=== PATIENT | male | born 1965 | race Caucasian/White ===

== ENCOUNTER 2022-05-24 11:06 | Emergency (ER) | payer MEDICAID ==
[~2022-05-24] VITALS: Ht 170.2 cm; Wt 74.8 kg
[2022-05-24 11:18] VITALS: BP 151/99
[2022-05-24] MEDS ORDERED: AMLO-213 PO (11:20)
[2022-05-24] MEDS ORDERED: LISI30TA4 PO (11:20)
== END 2022-05-24 11:22 | disposition home or self-care (01) ==
LOC: ER 11:15
DX: I10 Essential (primary) hypertension (principal); Z76.0 Encounter for issue of repeat prescription; Z79.899 Other long term (current) drug therapy

== ENCOUNTER 2022-12-09 11:39 | Emergency (ER) | payer MEDICAID ==
[~2022-12-09] VITALS: Ht 185.4 cm; Wt 102.1 kg
[~2022-12-09 11:39] MED LIST: AMLO-213 PO; LISI30TA4 PO
[2022-12-09 12:18] VITALS: TEMP 98.5
[2022-12-09] MEDS ORDERED: LISI30TA4 PO (12:29)
[2022-12-09] MEDS ORDERED: AMLO-213 PO (12:29)
[2022-12-09 12:33] VITALS: BP 128/88; O2SAT 100
== END 2022-12-09 12:33 | disposition home or self-care (01) ==
LOC: ER 11:39
DX: I10 Essential (primary) hypertension (principal); Z79.899 Other long term (current) drug therapy

== ENCOUNTER 2023-07-21 12:48 | Emergency (ER) | payer MEDICAID ==
[~2023-07-21] VITALS: Ht 185.4 cm; Wt 88.0 kg
[2023-07-21 12:53] VITALS: BP 144/98; TEMP 98.1; O2SAT 96
[2023-07-21] MEDS ORDERED: AMLO-213 PO (12:54)
[2023-07-21] MEDS ORDERED: LISI30TA4 PO (12:54)
== END 2023-07-21 12:59 | disposition home or self-care (01) ==
LOC: ER 12:57
DX: I10 Essential (primary) hypertension (principal); Z76.0 Encounter for issue of repeat prescription

== ENCOUNTER 2024-04-03 10:31 | Emergency (ER) | payer MEDICAID ==
[~2024-04-03] VITALS: Ht 185.4 cm; Wt 90.7 kg
[2024-04-03 11:01] VITALS: BP 136/99; TEMP 98.5
[2024-04-03 11:50] VITALS: O2SAT 97
== END 2024-04-03 11:51 | disposition home or self-care (01) ==
LOC: ER 10:34
DX: I10 Essential (primary) hypertension (principal); Z76.0 Encounter for issue of repeat prescription; Z79.899 Other long term (current) drug therapy

== ENCOUNTER 2024-07-11 12:38 | Emergency (ER) | payer MEDICAID ==
[~2024-07-11] VITALS: Ht 185.4 cm; Wt 89.8 kg
[2024-07-11 12:43] VITALS: BP 134/81; TEMP 98.3; O2SAT 97
[2024-07-11] MEDS ORDERED: LISI30TA4 PO (13:07)
[2024-07-11] MEDS ORDERED: AMLO-213 PO (13:07)
== END 2024-07-11 13:11 | disposition home or self-care (01) ==
LOC: ER 12:40
DX: I10 Essential (primary) hypertension (principal); Z76.0 Encounter for issue of repeat prescription; Z79.899 Other long term (current) drug therapy

== ENCOUNTER 2024-10-16 16:29 | Emergency (ER) | payer MEDICAID ==
[~2024-10-16] VITALS: Ht 182.9 cm; Wt 90.7 kg
[2024-10-16 17:23] VITALS: TEMP 98
[2024-10-16] MEDS ORDERED: LISI30TA4 PO (17:45)
[2024-10-16] MEDS ORDERED: AMLO-213 PO (17:45)
[2024-10-16 17:55] VITALS: BP 129/78; O2SAT 98
== END 2024-10-16 17:56 | disposition home or self-care (01) ==
LOC: ER 16:33
DX: I10 Essential (primary) hypertension (principal); Z76.0 Encounter for issue of repeat prescription; Z79.899 Other long term (current) drug therapy

== ENCOUNTER 2025-01-23 14:15 | Emergency (ER) | payer MEDICAID ==
[~2025-01-23] VITALS: Ht 185.4 cm; Wt 90.7 kg
[2025-01-23 14:59] VITALS: BP 134/80; TEMP 98.1
[2025-01-23] MEDS ORDERED: LISI30TA4 PO (15:02)
[2025-01-23] MEDS ORDERED: AMLO-213 PO (15:02)
[2025-01-23 15:05] VITALS: O2SAT 98
== END 2025-01-23 15:17 | disposition home or self-care (01) ==
LOC: ER 14:45
DX: I10 Essential (primary) hypertension (principal); Z76.0 Encounter for issue of repeat prescription; Z79.899 Other long term (current) drug therapy